=== PATIENT | male | born 1945 | race Caucasian/White ===

== ENCOUNTER 2019-08-21 17:29 | Inpatient (IN) ==
[2019-08-21] MEDS: Morphine Sulfate 2 MG/ML SYRINGE IVP PRN (21:19)
[2019-08-21] MEDS: Gabapentin 400 MG CAPSULE PO SCH (21:19)
[2019-08-21] MEDS ORDERED: Ondansetron 4 MG/2 ML VIAL IVP PRN (21:24)
[2019-08-21] MEDS: Melatonin 3 MG TABLET PO PRN (22:18)
[2019-08-22] MEDS: Morphine Sulfate 2 MG/ML SYRINGE IVP PRN ×2 (03:25→09:35)
[2019-08-22 06:55] LABS: Basophils % 0.2 %; Eosinophils % 0.4 %; Hematocrit 36.2 % (37.5-50.1); Hemoglobin 12.7 g/dL (12.9-16.9); Immature Granulocytes % 0.6 % (0-4); Lymphocytes # 2.1 K/mcL (0.6-4.6); Lymphocytes % 19.1 %; Mean Corpuscular HGB Conc 35.1 g/dL (31.6-35.5); Mean Corpuscular Volume 88.3 fL (83.0-100.0); Mean Platelet Volume 9.7 fL (9.4-12.4); Monocytes # 1.7 K/mcL (0.0-1.3); Monocytes % 15.9 %; Neutrophils # 6.9 K/mcL (1.6-8.9); Platelet Count 178 K/mcL (140-400); Red Cell Distribution Width 12.4 % (11.5-14.5); Segmented Neutrophils % 63.8 %; White Blood Count 10.8 K/mcL (4.3-11.1)
[2019-08-22 07:30] LABS: BUN/Creatinine Ratio 10 (6-26); Blood Urea Nitrogen 13 mg/dL (8-23); Calcium 8.3 mg/dL (8.6-10.3); Carbon Dioxide 31 mEq/L (23-29); Chloride 99 mEq/L (98-107); Glucose 125 mg/dL (70-105); Osmolality,Calculated 290 (280-300); Sodium 139 mEq/L (136-145); eGFR For African Americans > 60 (> 60); eGFR For Non-African Americans 54 (> 60)
[2019-08-22] MEDS ORDERED: DilTIAZem CD (24hr) 180 MG CAP.ER.24H PO SCH (09:00)
[2019-08-22] MEDS: Aspirin Enteric Coated 81 MG Tablet PO SCH (09:36)
[2019-08-22] MEDS: Gabapentin 400 MG CAPSULE PO SCH ×3 (09:36→20:51)
[2019-08-22] MEDS: (Linaclotide [Linzess] 145 MCG) PO SCH (09:36)
[2019-08-22] MEDS: *HR* Pioglitazone 15 MG TABLET PO SCH (09:36)
[2019-08-22] MEDS ORDERED: Ondansetron ODT 4 MG TAB.RAPDIS SL PRN (12:03)
[2019-08-22] MEDS: cloNIDine HCL 0.1 MG TABLET PO SCH ×2 (14:55→20:51)
[2019-08-22] MEDS: *HR* OxyCODONE/APAP 5/325 TABLET PO PRN ×2 (14:56→20:51)
[2019-08-22] MEDS: Melatonin 3 MG TABLET PO PRN (20:51)
[2019-08-23] MEDS: *HR* OxyCODONE/APAP 5/325 TABLET PO PRN ×3 (04:32→21:34)
[2019-08-23] MEDS: DilTIAZem CD (24hr) 240 MG CAP.ER.24H PO SCH (07:47)
[2019-08-23] MEDS: Gabapentin 400 MG CAPSULE PO SCH ×3 (07:47→21:34)
[2019-08-23] MEDS: cloNIDine HCL 0.1 MG TABLET PO SCH ×2 (07:47→21:34)
[2019-08-23] MEDS: Aspirin Enteric Coated 81 MG Tablet PO SCH (07:47)
[2019-08-23] MEDS: *HR* Pioglitazone 15 MG TABLET PO SCH (07:47)
[2019-08-23] MEDS: (Linaclotide [Linzess] 145 MCG) PO SCH (07:48)
[2019-08-23] MEDS ORDERED: MOM Conc 10 ML UD.LIQ PO PRN (08:28)
[2019-08-23] MEDS ORDERED: Bisacodyl 10 MG RECTAL SUPPOSITORY RC PRN (08:29)
[2019-08-23] MEDS: Melatonin 3 MG TABLET PO PRN (21:34)
[2019-08-24] MEDS: *HR* OxyCODONE/APAP 5/325 TABLET PO PRN ×4 (05:16→23:12)
[2019-08-24] MEDS: DilTIAZem CD (24hr) 240 MG CAP.ER.24H PO SCH (08:31)
[2019-08-24] MEDS: *HR* Pioglitazone 15 MG TABLET PO SCH (08:32)
[2019-08-24] MEDS: Gabapentin 400 MG CAPSULE PO SCH ×3 (08:32→23:12)
[2019-08-24] MEDS: Aspirin Enteric Coated 81 MG Tablet PO SCH (08:32)
[2019-08-24] MEDS: cloNIDine HCL 0.1 MG TABLET PO SCH ×2 (08:32→23:12)
[2019-08-24] MEDS: (Linaclotide [Linzess] 145 MCG) PO SCH (08:33)
[2019-08-24] MEDS: Melatonin 3 MG TABLET PO PRN (23:12)
[2019-08-25] MEDS: Gabapentin 400 MG CAPSULE PO SCH ×3 (09:12→21:08)
[2019-08-25] MEDS: cloNIDine HCL 0.1 MG TABLET PO SCH ×2 (09:12→21:08)
[2019-08-25] MEDS: (Linaclotide [Linzess] 145 MCG) PO SCH (09:12)
[2019-08-25] MEDS: Aspirin Enteric Coated 81 MG Tablet PO SCH (09:12)
[2019-08-25] MEDS: DilTIAZem CD (24hr) 240 MG CAP.ER.24H PO SCH (09:12)
[2019-08-25] MEDS: *HR* Pioglitazone 15 MG TABLET PO SCH (09:20)
[2019-08-25 09:33] LABS: Calcium 8.1 mg/dL (8.6-10.3); Potassium 2.9 mEq/L (3.5-5.1)
[2019-08-25] MEDS: *HR* OxyCODONE/APAP 5/325 TABLET PO PRN ×2 (10:53→21:08)
[2019-08-25] MEDS: Melatonin 3 MG TABLET PO PRN (21:08)
[2019-08-26 06:17] VITALS: BP 152/86
[2019-08-26 08:21] LABS: Calcium 8.6 mg/dL (8.6-10.3); Potassium 2.9 mEq/L (3.5-5.1)
[2019-08-26] MEDS ORDERED: Potassium Chloride Elixir 20 MEQ/15 ML UDC PO ONE (09:46)
[2019-08-26] MEDS: Aspirin Enteric Coated 81 MG Tablet PO SCH (10:23)
[2019-08-26] MEDS: Gabapentin 400 MG CAPSULE PO SCH (10:23)
[2019-08-26] MEDS: DilTIAZem CD (24hr) 240 MG CAP.ER.24H PO SCH (10:23)
[2019-08-26] MEDS: cloNIDine HCL 0.1 MG TABLET PO SCH (10:23)
[2019-08-26] MEDS: (Linaclotide [Linzess] 145 MCG) PO SCH (10:24)
[2019-08-26] MEDS: *HR* Pioglitazone 15 MG TABLET PO SCH (10:24)
[2019-08-26] MEDS: *HR* OxyCODONE/APAP 5/325 TABLET PO PRN (10:34)
== END 2019-08-26 11:54 | disposition home or self-care (01) | DRG 945 ==
LOC: INPPIK 17:51
PROVIDERS: ADMIT Family Medicine; ATTEND Family Medicine